=== PATIENT | male | born 1975 ===

== ENCOUNTER 2017-06-05 14:39 | Emergency (ER) | payer OTHER ==
[2017-06-05 14:48] VITALS: RESP 16
[2017-06-05] MEDS ORDERED: Bacitracin 500 Units/gm Oint Foilpak UD TOP ONE (15:21)
[2017-06-05] MEDS ORDERED: Bacitracin 500 Units/gm Oint Foilpak UD ONE (15:31)
[2017-06-05 16:04] VITALS: BP 112/72; PULSE 62; TEMP 97.5; O2SAT 95
--- NOTE | 2017-06-05 16:14 | C.PDOC ---
History Of Present Illness 41 year old male presents to the ED for evaluation of injury to right shoulder and hand. Patient reports that he was at work when a piece of metal fell and struck his right shoulder and hand, cutting his hand. He denies loss of consciousness. Tetanus not up to date. Time Seen by Provider: 06/05/17 14:58 Chief Complaint (Nursing): Abnormal Skin Integrity History Per: Patient History/Exam Limitations: no limitations Onset/Duration Of Symptoms: Mins Location Of Injury: Right: Hand, Shoulder Past Medical History Reviewed: Historical Data, Nursing Documentation, Vital Signs Vital Signs: Last Vital Signs Temp 97.5 F L 06/05/17 16:03 Pulse 62 06/05/17 16:03 Resp 16 06/05/17 16:03 BP 112/72 06/05/17 16:03 Pulse Ox 95 06/05/17 16:45 - Medical History PMH: No Chronic Diseases Family History: States: Unknown Family Hx - Social History Hx Alcohol Use: No Hx Substance Use: No - Immunization History Hx Tetanus Toxoid Vaccination: No Review Of Systems Except As Marked, All Systems Reviewed And Found Negative. Musculoskeletal: Positive for: Shoulder Pain, Hand Pain Physical Exam - Physical Exam Appears: Non-toxic, No Acute Distress Skin: Normal Color, Warm, Dry Head: Atraumatic, Normacephalic Eye(s): bilateral: Normal Inspection, EOMI Chest: Symmetrical Extremity: Normal ROM, Tenderness (anterior right shoulder), No Deformity, Other (1 cm superficial abrasion to dorsal aspect of proximal second digit, no active bleeding) Neurological/Psych: Oriented x3, Normal Speech ED Course And Treatment O2 Sat by Pulse Oximetry: 95 Pulse Ox Interpretation: Normal Medical Decision Making Medical Decision Making: Impression: hand laceration, shoulder pain Plan: * Shoulder Xray * Tetanus shot * Bacitracin and dress laceration Progress: Xray negative for fracture or dislocation. Will discharge patient home for follow up with PCP. Disposition Counseled Patient/Family Regarding: Studies Performed, Diagnosis, Need For Followup - Disposition Referrals: [facility] [Outside] Disposition: HOME/ ROUTINE Disposition Time: 16:45 Condition: GOOD Additional Instructions: Lemos radiografa fue negativa para la fractura. Mantenga la herida limpia y seca. Cambie de vendaje diariamente. Mallorie un seguimiento con lemos mdico o clnica principal en 1 semana para lizette evaluacin ms detallada. Instructions: Laceration (DC), Shoulder Sprain (ED) Forms: [facility] ([place]), Work Excuse Print Language: LITHUANIAN - POA Present On Arrival: None - Clinical Impression Clinical Impression: Hand abrasion, Shoulder contusion - Scribe Statement The provider has reviewed the documentation as recorded by the Scribe Phi Davalos
--- NOTE | 2017-06-05 16:59 | RAD ---
PROCEDURE: Radiographs of the Right Shoulder HISTORY: pain to arm COMPARISON: No prior. FINDINGS: BONES: Normal. No fracture. JOINTS: Normal. Glenohumeral and acromioclavicular joints preserved. No osteoarthritis. SOFT TISSUES: No definitive evidence of radiopaque foreign body or subcutaneous emphysema identified OTHER FINDINGS: None. IMPRESSION: Normal radiographs of the right shoulder.
== END 2017-06-05 16:49 | disposition home or self-care (01) ==
LOC: C.ER 14:39
DX: S60.511A Abrasion of right hand, initial encounter (principal); S40.011A Contusion of right shoulder, initial encounter; W22.8XXA Striking against or struck by other objects, initial encounter; Y92.89 Other specified places as the place of occurrence of the external cause; Y99.0 Civilian activity done for income or pay